=== PATIENT | female | born 1960 | race Hispanic/Latino ===

== ENCOUNTER 2024-03-18 13:11 | Inpatient (IN) | payer MEDICARE ==
[2024-03-18 13:15] VITALS: PULSE 87; RESP 18; TEMP 97.3
[2024-03-18] MEDS: Morphine 2mg Syringe 2 MG/ML SYR IV ONE (14:23)
[2024-03-18] MEDS: ONDANSETRON HCL INJ 2MG/ML 2ML 2 MG/ML VIAL IV STA (14:23)
[2024-03-18] MEDS ORDERED: SODIUM CHLORIDE FLUSH 10 ML SYR INJ PRN (17:00)
[2024-03-18] MEDS: Morphine 2mg Syringe 2 MG/ML SYR IV PRN (17:02)
[2024-03-18] MEDS: ONDANSETRON HCL INJ 2MG/ML 2ML 2 MG/ML VIAL IV PRN (17:02)
[2024-03-18 20:00] VITALS: BP 149/67; PULSE 87; RESP 17; TEMP 97.7; O2SAT 100
[2024-03-18 20:27] VITALS: BP 149/67; PULSE 87; RESP 17; TEMP 97.7; O2SAT 100
[2024-03-19] VITALS (11 sets, daily range): BP systolic 108–140; BP diastolic 51–84; PULSE 72–96; RESP 16–20; TEMP 97.7–98.3; O2SAT 96–100
[2024-03-19] MEDS ORDERED: BENZONATATE 100 MG CAP PO PRN (01:45)
[2024-03-19] MEDS ORDERED: DIPHENHYDRAMINE HCL 25 MG CAP PO PRN (01:45)
[2024-03-19] MEDS ORDERED: MELATONIN 5 MG TABLET PO PRN (01:45)
[2024-03-19] MEDS ORDERED: DOCUSATE SODIUM 100 MG CAP PO PRN (01:45)
[2024-03-19] MEDS ORDERED: SIMETHICONE 80 MG CHEW PO PRN (01:45)
[2024-03-19] MEDS ORDERED: DEXTROSE 50% SYRINGE 50 ML IV PRN (01:45)
[2024-03-19] MEDS ORDERED: ALBUTEROL/IPRATROPIUM 3 ML NEB NEB PRN (01:45)
[2024-03-19] MEDS ORDERED: POTASSIUM CHLORIDE 20 MEQ TAB CR PO PRN (01:45)
[2024-03-19] MEDS ORDERED: HYDRALAZINE HCL 20 MG/ML VIAL IV PRN (01:45)
[2024-03-19] MEDS ORDERED: LIDOCAINE 4% PATCH TP PRN (01:45)
[2024-03-19] MEDS ORDERED: AMBIEN10 MG PO (02:09)
[2024-03-19] MEDS ORDERED: SERTRALINE HCL50 MG PO (02:09)
[2024-03-19] MEDS ORDERED: HYDROXYZINE HCL25 MG PO (02:15)
[2024-03-19] MEDS ORDERED: XANAX1 MG PO (02:15)
[2024-03-19 06:10] LABS: BASOPHILS # (AUTO) 0.1 (0.0-0.1); BASOPHILS % 0.9 % (0.0-1.0); EOSINOPHILS # (AUTO) 0.3 (0.0-0.4); EOSINOPHILS % 3.1 % (0.0-6.0); HEMATOCRIT 33.6 % (34.2-44.1); HEMOGLOBIN 10.1 g/dL (12.0-16.0); LYMPHOCYTES % 49.7 % (18.0-39.1); MEAN CORPUSCULAR HEMOGLOBIN 28.6 pg (28-32); MEAN CORPUSCULAR HGB CONC 30.1 g/dL (31-35); MEAN CORPUSCULAR VOLUME 95.2 fL (81-99); MONOCYTES # (AUTO) 0.6 (0.2-0.8); MONOCYTES % 7.9 % (4.4-11.3); NEUTROPHILS # (AUTO) 3.1 (2.1-6.9); NEUTROPHILS % 38.2 % (38.7-80.0); PLATELET COUNT 200 x10e3/uL (140-360); RED BLOOD COUNT 3.53 x10e6/uL (3.6-5.1); RED CELL DISTRIBUTION WIDTH 15.9 % (11.7-14.4); WHITE BLOOD COUNT 8.07 x10e3/uL (4.8-10.8)
[2024-03-19] MEDS: PANTOPRAZOLE SOD 40 MG TABEC PO SCH (08:48)
[2024-03-19] MEDS ORDERED: ACETAMINOPHEN/CODEINE 300MG - 30MG TAB PO PRN (15:15)
[2024-03-19] MEDS: KETOROLAC TROMETHAMINE 30 MG/ML VIAL IV SCH (17:02)
[2024-03-19] MEDS: ENOXAPARIN SOD INJ 40 MG/0.4 ML SYR SC SCH (18:37)
[2024-03-20 03:15] VITALS: BP 119/57; PULSE 89; RESP 18; TEMP 97.9; O2SAT 100
[2024-03-20 06:13] VITALS: PULSE 75; RESP 22; O2SAT 95
[2024-03-20 06:48] LABS: ANION GAP 12.5 mmol/L (8-16); CALCIUM 8.5 mg/dL (8.4-10.2); CREATININE, SERUM 0.65 mg/dL (0.57-1.11); POTASSIUM 3.5 mmol/L (3.5-5.1)
[2024-03-20 08:11] VITALS: BP 124/61; PULSE 72; RESP 18; TEMP 97.7; O2SAT 100
[2024-03-20 08:21] VITALS: BP 124/61; PULSE 72; RESP 18; TEMP 97.4; O2SAT 100
[2024-03-20 12:40] VITALS: BP 121/61; PULSE 87; RESP 18; TEMP 97.9; O2SAT 100
== END 2024-03-20 17:10 | disposition home or self-care (01) | DRG 563 ==
LOC: FSED 13:16 → ERHOLD 16:49 → MED/SURG2 18:11 → OBSVTOIN 03-20 15:03
PROVIDERS: ADMIT Internal Medicine; ATTEND Internal Medicine
PROC: 2W3AX1Z Immobilization of Right Upper Arm using Splint (ICD-10-PCS; principal; 2024-03-18)
DX: S42.291A Other displaced fracture of upper end of right humerus, initial encounter for closed fracture (principal); I69.351 Hemiplegia and hemiparesis following cerebral infarction affecting right dominant side; Z21 Asymptomatic human immunodeficiency virus [HIV] infection status; F41.9 Anxiety disorder, unspecified; Z99.81 Dependence on supplemental oxygen; W01.0XXA Fall on same level from slipping, tripping and stumbling without subsequent striking against object, initial encounter; Y92.009 Unspecified place in unspecified non-institutional (private) residence as the place of occurrence of the external cause; Z71.81 Spiritual or religious counseling; Z79.899 Other long term (current) drug therapy
CPT/HCPCS: 36415; 80048; 80053; 85025; 94799; 99283; G0378; J1650; J1885; J2270; J2405